=== PATIENT | male | born 1940 | race Caucasian/White ===

== ENCOUNTER 2017-05-24 11:33 | Inpatient (IN) | payer MEDICARE, OTHER ==
[~2017-05-24] VITALS: Ht 180.3 cm; Wt 88.1 kg
--- NOTE | ~2017-05-24 | IDS ---
Interim Discharge Summary [facility] [address] [place]. [address] NAME: ROSE DOSS JR : 42 STATUS : ADM IN [facility]#: [id number] AGE: 76 ADM/REG DATE : 05/26/17 MR#: [id number] REPORT SERV DATE: 05/30/17 DICTATED BY: PROSPER CORTEZ DATE: 05/30/17 REPORT STATUS : Draft TRANSCRIBED BY: MODL DATE: 05/30/17 ADMISSION DATE: 05/26/2017 DISCHARGE DATE: CONSULTING PHYSICIANS: Dr. Loza for Cardiology; Dr. Stapleotn for surgery; Dr. Sherman for GI. INTERIM DIAGNOSES: 1. Colon cancer, status post partial colectomy. 2. Status post rapid atrial flutter, atrial fibrillation. 3. Chronic kidney disease, stage 3. 4. History of mild asthma. 5. Benign prostatic hyperplasia. DIAGNOSTIC EXAMS: CAT scan of the abdomen and pelvis showing 6 cm long segment of circumferentially thickened appearing distal transverse colon, decompressed bladder, small fat-containing umbilical hernia, a 2.8 cm cyst lower pole, left kidney. HOSPITAL COURSE: Please refer to the H and P done by Dr. Cooper dated on 05/24/2017. Briefly, this is a 76-year-old male who comes in for rapid atrial fibrillation. The patient has been diagnosed with atrial fibrillation in July 2016 and was placed on Xarelto, Multaq, and Cardizem. Later on, the patient was taken off Multaq and then he started having some black stools. The patient was found to have an iron deficiency anemia. Xarelto was held. Hemoccult was positive. The patient was supposed to get an outpatient EGD and colonoscopy with Dr. Sherman; however, he was found to be in rapid atrial fibrillation and was directly admitted by Dr. Cooper. The patient was started on metoprolol together with his outpatient diltiazem and we were able to control this. Dr. Sherman was then consulted. He did an EGD, which shows grade 1 esophagitis, gastritis, duodenal erosions without bleeding. The patient then had a colonoscopy, which showed nonbleeding internal hemorrhoids. 6 mm polyp in the rectum and a midtransverse colon malignant tumor. Biopsy was done and it turned out to be cancer. Surgery was consulted and the patient underwent a partial colectomy. Pathology of the surgery is still pending. Meanwhile, the patient went into rapid atrial fibrillation flutter and was placed on a Cardizem drip. He converted back to a controlled atrial fibrillation. Cardiology was consulted and they agreed with the present management and restarted Xarelto when the surgeon said it was okay. The patient has been passing flatus. He wants to increase his diet as he said he has not been eating anything since he got admitted. We will wait for Dr. Stapleton to increase his diet. We will follow up the pathology. A partner [facility] will be following up the patient starting Wednesday. BERNABE/YAHIR Prosper Cortez M.D. / [id number] Interim Discharge Summary [address] [address] NAME: ROSE DOSS : 42 STATUS : ADM IN PAT#: [id number] AGE: 76 ADM/REG DATE : 05/26/17 MR#: [id number] REPORT SERV DATE: 05/30/17 DICTATED BY: PROSPER CORTEZ. DATE: 05/30/17 REPORT STATUS : Draft TRANSCRIBED BY: YAHIR DATE: 05/30/17 CC: Brittany Dial M.D.
--- NOTE | ~2017-05-24 | HP ---
History And Physical [place] [address] [facility]. [address] NAME: ROSE DOSS JR : 42 STATUS : ADM Zakia PAT#: [id number] AGE: 76 ADM/REG DATE : 05/24/17 MR#: [id number] REPORT SERV DATE: 05/24/17 DICTATED BY: PROSPER COOPER DATE: 05/24/17 REPORT STATUS : Draft TRANSCRIBED BY: MODL DATE: 05/24/17 DATE OF ADMISSION: 05/24/2017 IDENTIFYING DATA: The patient is a 76-year-old white male whose PCP is Dr. Miguel Fontanez; GI, Rafi Sherman; cardiology, Dr. Melendez in [place]; Nephrology, Dr. Gonzales in [place]. CHIEF COMPLAINT: Atrial fibrillation with rapid ventricular response and black stools. HISTORY OF PRESENT ILLNESS: This history of present illness is obtained by talking with the patient and talking with Dr. Sherman, and looking at the [employer] and [employer]. The patient states he was diagnosed with atrial fibrillation in July 2016 on a yearly physical exam. He was asymptomatic. His PCP started him on Xarelto at that time, and referred him to Dr. Melendez in [place]. He was placed on Multaq and Cardizem and the Cardizem dose was later titrated up because his heart rate was still fast. The patient describes a nuclear stress test and echocardiogram done at [facility] which he states was normal other than some cysts being found on his kidney. He states later his insurance company complained about the cost of the Multaq and his tube filler just stopped it. The patient states he has had episodes where he was lightheaded and faint, he will get dyspnea on exertion, and states that with that he was told he had low iron and "mild anemia." He did stool hemoccults and 4 out of the 5 that he checked were positive. He has been referred for EGD and colonoscopy, and today went for that but had rapid ventricular response so anesthesia delayed it, and asked us to get him under better control. REVIEW OF SYSTEMS: On review of systems, he states that he gets pain in his upper trapezius muscles when his iron level is low and he walks. He also gets dyspnea on exertion at that time. He denies fever, sore throat, cough, nasal congestion, chest pain, shortness of breath, abdominal pain, nausea, vomiting, diarrhea, or rectal bleeding. He did have black stools when he was on iron and Xarelto, the iron is [id number]-kiyitck. He states they were not as black when he stopped the Xarelto 2 weeks ago. ALLERGIES: NO KNOWN DRUG ALLERGIES. PAST MEDICAL HISTORY: He denies any history of diabetes, hypertension, myocardial infarction, stroke, seizure, peptic ulcer, biliary tract disease, liver disease, thyroid disease, cancer. He states he was tested for sleep apnea with a "home kit" and was normal. He has a history of colon polyps in the distant past. He has a history of mild intermittent asthma. He has cervical spine degenerative disk disease. He has stage 3 chronic kidney disease. He has iron deficiency anemia. He has had iron infusions for a couple times at [facility] and has been on some xead-vkd-czsmpdx iron. He has benign prostatic hypertrophy. HOME MEDICATIONS: Diltiazem extended release 240 mg daily, iron sulfate 325 mg daily, Proscar 5 mg every evening, multivitamin once a day, Zantac 150 mg b.i.d., Xarelto 20 mg History And Physical [address] [address] NAME: ROSE DOSS JR : 42 STATUS : ADM Zakia PAT#: [id number] AGE: 76 ADM/REG DATE : 05/24/17 MR#: [id number] REPORT SERV DATE: 05/24/17 DICTATED BY: PROSPER COOPER DATE: 05/24/17 REPORT STATUS : Draft TRANSCRIBED BY: YAHIR DATE: 05/24/17 daily but he stopped 2 weeks ago, mbsk-qsi-fmomcgm prostate supplement. He also uses some type of an albuterol inhaler p.r.n. PAST SURGICAL HISTORY: He had a biopsy of a skin lesion in the last week or two and a tonsillectomy. SOCIAL HISTORY: He quit smoking in 1984. He only smoked about three cigarettes per day. SOCIAL HISTORY: He states he drank moderately, but when I asked for details that was one glass of wine per month. 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 He walks without any assistive device. FAMILY HISTORY: Mother at age 73 with esophageal cancer, she had previously had breast cancer. Dad with alcoholic cirrhosis. Siblings unremarkable. DIAGNOSTIC DATA: There is none available that is up to date any sooner than August 2015 at this time, but it has been ordered at this time. PHYSICAL EXAMINATION: VITAL SIGNS: Temp is 98, pulse 88, respirations 18, blood pressure 130/70, O2 saturation is 100% on room air. BMI is 28.1. GENERAL: Well-developed male, who appears in no acute distress. HEENT: Head is atraumatic. Pupils are equal, round, and reactive to light. Extraocular motions are intact. No scleral icterus noted. Ear canals and TMs unremarkable. No inflammatory changes noted externally. Nose, noninflamed externally. Septum midline. Nares patent. Mouth, moist. Good gag. No redness of the throat, gums, or lips. NECK: Supple. No lymph node or thyroid enlargement. The carotids have good pulses. No bruits. LUNGS: Clear. Good air flow. No wheezes, no rhonchi. Normal respiratory effort. HEART: Irregularly irregular without murmur, gallop, click, or rub. ABDOMEN: Bowel sounds positive. Soft, flat, nondistended, nontender. No masses. No organomegaly. No bruits noted. EXTREMITIES: Warm, good pulses. No clubbing, no cyanosis, no edema. No actively inflamed skin or joints. NEUROLOGIC: He is alert, oriented, and cooperative with grossly normal mentation and speech as well as motor and cranial nerves II through XII. No Babinski. No clonus noted. ASSESSMENT: 1. Chronic atrial fibrillation with currently rapid ventricular response despite having taken his Cardizem CD. He reportedly had an unremarkable echo and unremarkable stress test, but we do not have the actual report. 2. Report of melena while on Xarelto and report of iron deficiency anemia. 3. Stage 3 chronic kidney disease. 4. Mild intermittent asthma. 5. Cervical spine degenerative disk disease. 6. History of benign prostatic hypertrophy. History And Physical [address] [address] NAME: ROSE DOSS : 42 STATUS : ADM Zakia PAT#: [id number] AGE: 76 ADM/REG DATE : 05/24/17 MR#: [id number] REPORT SERV DATE: 05/24/17 DICTATED BY: PROSPER COOPER DATE: 05/24/17 REPORT STATUS : Draft TRANSCRIBED BY: YAHIR DATE: 05/24/17 PLAN: 1. Observation status. 2. We are going to check iron, TIBC, ferritin, percent iron saturation, B12, magnesium, and TSH. We will put him on telemetry. We are going to add metoprolol low dose to his Cardizem CD. We are going to get the request sent now to [facility] for the results of his echocardiogram and his myocardial perfusion imaging. Called medical record, hopefully they will respond and send it back quickly. 3. If his rate is controlled, then probably tomorrow he can proceed with EGD and colonoscopy. RSJonna/YAHIR Prosper Cooper M.D. / [id number] CC: Brittany Medina M.D. Alan Shikoh, M.D.
--- NOTE | ~2017-05-24 | CN ---
Consultation Report [facility] [address] [place]. [address] NAME: ROSE DOSS JR : 42 STATUS : ADM Zakia PAT#: [id number] AGE: 76 ADM/REG DATE : 05/24/17 MR#: [id number] REPORT SERV DATE: 05/25/17 DICTATED BY: RAFI SHERMAN DATE: 05/24/17 REPORT STATUS : Draft TRANSCRIBED BY: MODL DATE: 05/24/17 CONSULT NOTE DATE OF CONSULTATION: 05/24/2017 REASON FOR CONSULTATION: Iron-deficiency anemia and heme-positive stool. HISTORY OF PRESENT ILLNESS: This is a 76-year-old man who I am seeing for iron-deficiency anemia with occult blood in the stool and even some melenic stool. This gentleman had been seen as an outpatient in our office, 04/14/2017. He has been struggling with atrial fibrillation. He sees his primary care physician, Dr. Fontanez, and also Dr. Nick Melendez, who has been managing atrial fibrillation. He has been on oral diltiazem and is even on Multaq in addition to Xarelto. The Multaq was held when he developed melena. Now, he is on Cardizem and Xarelto. The stools have been heme-positive, and he is iron deficient and anemic with the hemoglobin down to 10.7. We plan to perform an upper and lower endoscopy today, but he came in with atrial fibrillation with poor rate control with his heart rate up in the 140s. The case was canceled by the anesthesiologist. PAST MEDICAL HISTORY: 1. GERD. 2. Adenomatous colon polyps. 3. Atrial fibrillation since 07/2016. 4. Stage 3 chronic kidney disease. 5. BPH. 6. Hyperkalemia. 7. Mild mitral and tricuspid regurgitation. 8. Asthma. 9. Complex left kidney cyst. PAST SURGICAL HISTORY: No abdominal surgeries. MEDICATIONS: Xarelto, Cartia XT, ranitidine 150 mg twice daily, finasteride, Prostate SR, iron, multivitamin, MiraLAX, Breo inhaler, and ProAir inhaler. ALLERGIES: NO KNOWN DRUG ALLERGIES. FAMILY HISTORY: His mother had breast cancer in her 50s and esophageal cancer in her 60s but in her 70s. His father in his 60s of cirrhosis. SOCIAL HISTORY: He is . He quit smoking in the 70s. He is retired. Drinks alcohol socially. He lives in [place], [place]. REVIEW OF SYSTEMS: Otherwise unremarkable for constitutional, endocrine, neurologic, psychiatric, ocular, ENT, Consultation Report [place] [address] [place]. [address] NAME: ROSE DOSS JR : 42 STATUS : ADM Zakia PAT#: [id number] AGE: 76 ADM/REG DATE : 05/24/17 MR#: [id number] REPORT SERV DATE: 05/25/17 DICTATED BY: RAFI SHERMAN DATE: 05/24/17 REPORT STATUS : Draft TRANSCRIBED BY: MODL DATE: 05/24/17 pulmonary, GI, , or rheumatologic symptoms except for as noted above. PHYSICAL EXAMINATION: GENERAL: He is well nourished and in no acute distress. VITAL SIGNS: Afebrile but with a heart rate in the 140s which is irregularly irregular. SKIN: Warm and dry. LUNGS: Clear. CARDIOVASCULAR: Irregularly irregular rhythm with soft systolic murmur. ABDOMEN: Soft and nontender. EXTREMITIES: No edema. IMPRESSION: 1. Iron-deficiency anemia with occult blood in the stool and even melena a week or two ago. 2. History of adenomatous colon polyps. 3. Chronic constipation. 4. Family history of esophageal cancer in his mother. 5. Poorly controlled atrial fibrillation. PLAN: 1. We will arrange admission to the Hospitalist Service in consultation with Cardiology for rate control and IV diltiazem. 2. Clear liquids today. 3. NPO after midnight with plans to go ahead and try to perform the endoscopies tomorrow afternoon as he has had a bowel prep and is off the Xarelto. /MODL Rafi Sherman M.D. / [id number] CC: Brittany Medina M.D. DR. SYED AGHA
--- NOTE | ~2017-05-24 | EGD ---
EGD REPORT [facility] [address] [place] [address] NAME: ERIC DOSS JR : 42 STATUS : ADM Zakia PAT#: [id number] AGE: 76 ADM/REG DATE : 05/24/17 MR#: [id number] REPORT SERV DATE: 05/25/17 DICTATED BY: KAPIL MULLER DATE: 05/25/17 REPORT STATUS : Draft TRANSCRIBED BY: [facility] DATE: 05/25/17 Endoscopy Center Patient Name: Eric Doss Date of : 1940 Attending MD: KAPIL MULLER MD Procedure Date No Time: 05/25/2017 Procedure: Colonoscopy Indications: Gastrointestinal occult blood loss, Iron deficiency anemia secondary to chronic blood loss, Follow-up for history of adenomatous polyps in the colon, Last colonoscopy: July 2012 Referring MD: CRISTIAN ZIMMER Medicines: Propofol per Anesthesia Complications: No immediate complications. Estimated blood loss: Minimal. Procedure: Pre-Anesthesia Assessment: - After reviewing the risks and benefits, the patient was deemed in satisfactory condition to undergo the procedure. - Prior to the procedure, a History and Physical was performed, and patient medications and allergies were reviewed. The patient's tolerance of previous anesthesia was also reviewed. The risks and benefits of the procedure and the sedation options and risks were discussed with the patient. All questions were answered, and informed consent was obtained. Prior Anticoagulants: The patient has taken Xarelto (rivaroxaban), last dose was 3 days prior to procedure. ASA Grade Assessment: III - A patient with severe systemic disease. After reviewing the risks and benefits, the patient was deemed in satisfactory condition to undergo the procedure. After the scope was passed under direct vision. Throughout the procedure, the patient's blood pressure, pulse, and oxygen saturations were monitored continuously. The CF [id number] was introduced through the anus and advanced to the cecum, identified by appendiceal orifice and ileocecal valve. The colonoscopy was performed without difficulty. The ileocecal valve and appendiceal orifice were photographed. The patient tolerated the procedure well. The quality of the bowel preparation was only fair as the bowel prep was consumed 2 days before the procedure which had to be delayed for medical issues. The bowel preparation used was polyethylene glycol (PEG). Scope EGD REPORT [address] [address] NAME: ERIC DOSS JR : 42 STATUS : ADM Zakia PAT#: [id number] AGE: 76 ADM/REG DATE : 05/24/17 MR#: [id number] REPORT SERV DATE: 05/25/17 DICTATED BY: KAPIL MULLER DATE: 05/25/17 REPORT STATUS : Draft TRANSCRIBED BY: [employer] DATE: 05/25/17 withdrawal time was greater than 15 minutes. Findings: The perianal and digital rectal examinations were normal. Pertinent negatives include normal sphincter tone. Non-bleeding internal hemorrhoids were found during retroflexion and were medium-sized and Grade I (internal hemorrhoids that do not prolapse). A sessile polyp was found in the rectum. The polyp was 6 mm in size. The polyp was removed with a cold snare. Resection and retrieval were complete. Estimated blood loss: none. An infiltrative non-obstructing small mass was found in the mid transverse colon. The mass was partially circumferential (involving one-third of the lumen circumference). The mass measured two cm in length. No bleeding was present. Biopsies were taken with a cold forceps for histology. Estimated blood loss was minimal. Area was successfully injected with 5 mL Spot (carbon black) for tattooing. Estimated blood loss: none. The exam was otherwise without abnormality. Impression: - Non-bleeding internal hemorrhoids. - One 6 mm polyp in the rectum. Resected and retrieved. - Malignant tumor in the mid transverse colon. Biopsied. Biopsied. Injected. - The examination was otherwise normal. Recommendation: - [facility]. - Clear liquid diet. - Continue present medications. - Await pathology results. - Check liver enzymes (AST, ALT, alkaline phosphatase, bilirubin) and CEA today. - Perform a CT scan (computed tomography) of abdomen with contrast and pelvis with contrast today. - Refer to a surgeon today. - Repeat colonoscopy in 1 year for surveillance. Procedure Code(s): --- Professional --- 94586, Colonoscopy, flexible, proximal to splenic flexure; with removal of tumor(s), polyp(s), or other lesion(s) by snare technique 14470, 59, Colonoscopy, flexible, proximal to splenic flexure; with biopsy, single or multiple 14681, Colonoscopy, flexible, proximal to splenic flexure; with directed submucosal injection(s), any substance Diagnosis Code(s): --- Professional --- EGD REPORT [address] [address] NAME: ERIC DOSS JR : 42 STATUS : ADM Zakia PAT#: [id number] AGE: 76 ADM/REG DATE : 05/24/17 MR#: [id number] REPORT SERV DATE: 05/25/17 DICTATED BY: KAPIL MULLER DATE: 05/25/17 REPORT STATUS : Draft TRANSCRIBED BY: [employer] DATE: 05/25/17 K64.0, First degree hemorrhoids K62.1, Rectal polyp C18.4, Malignant neoplasm of transverse colon R19.5, Other fecal abnormalities D50.0, Iron deficiency anemia secondary to blood loss (chronic) Z86.010, Personal history of colonic polyps CPT copyright 2013 [employer]. All rights reserved. The codes documented in this report are preliminary and upon electron tube assembler review may be revised to meet current compliance requirements. Attending Participation: I personally performed the entire procedure. KAPIL MULLER MD 05/25/2017 3:25 PM This report has been signed electronically. Number of Addenda: 0 Note Initiated On: 05/25/2017 2:31 PM Scope Withdrawal Time 0 hours 15 minutes 33 seconds [id number] [id number]
--- NOTE | ~2017-05-24 | DS ---
Discharge Summary [place] [id number] [facility] [place]. [address] NAME: ROSE DOSS JR : 42 STATUS : DIS IN PAT#: [id number] AGE: 76 ADM/REG DATE : 05/26/17 MR#: [id number] REPORT SERV DATE: 06/02/17 DICTATED BY: NEERAJ GLASER DATE: 06/01/17 REPORT STATUS : Draft TRANSCRIBED BY: MODL DATE: 06/01/17 ADMISSION DATE: 05/26/2017 DISCHARGE DATE: 06/01/2017 DISCHARGE TRANSFER Please see full details from interim discharge summary done just [address] Celestin. 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 The patient came in, 76-year-old, with rapid AFib; was previously on Xarelto, Multaq, and Cardizem. Taken off Multaq. Thereafter, developed melena, iron deficiency. Xarelto was held. Hemoccult was positive. Was to have outpatient endoscopy and colonoscopy; however, given RVR, was directly admitted to the hospital. Dr. Sherman did an endoscopy here, grade 1 esophagitis, gastritis, duodenal erosions without bleeding. The patient then had a colonoscopy, nonbleeding internal hemorrhoids; however, found a 6 mm polyp in the rectum and midtransverse colon with malignant tumor, biopsy was done, mucinous adenocarcinoma. Surgery was consulted. Partial colectomy was performed. The patient thereafter went back into RVR, converted. With Cardiology consultation, they had restarted the Xarelto. Currently, still on mechanical soft diet. We will try to induce a bowel movement. The partial colectomy, transverse, was on 05/27/2017. Appeared to have a full-thickness with final staging, deferred to permanent section. As a result, we will have the patient follow up [facility]INT[facility] with [facility] for possible adjuvant chemo. Do not see any adjacent lymphadenopathy on the CT with IV contrast. Has resolved duodenal erosion, PPI b.i.d. for likely [address] Sherman. FOLLOWUP: Follow up with Dr. Sherman in four to six weeks. Follow up with PCP in two weeks. Follow up with [facility] in two weeks. DISCHARGE MEDICATIONS: Diltiazem CD 240 p.o. daily, metoprolol tartrate 25 p.o. b.i.d., Proscar 5 p.o. daily, Protonix 40 p.o. b.i.d., iron sulfate 325 p.o. daily, multivitamin one tablet p.o. daily, Xarelto 20 p.o. at bedtime, Colace 100 p.o. b.i.d. CONSULTS: Surgery, Cardiology, EP. [id number] score of 2 for age, unknown history of high blood pressure, oral anticoagulation was indicated. All questions were answered. It took well over 30 minutes to do. Discharge Summary [address] [place]. [address] NAME: ROSE DOSS JR : 42 STATUS : DIS IN PAT#: [id number] AGE: 76 ADM/REG DATE : 05/26/17 MR#: [id number] REPORT SERV DATE: 06/02/17 DICTATED BY: NEERAJ GLASER DATE: 06/01/17 REPORT STATUS : Draft TRANSCRIBED BY: [employer] DATE: 06/01/17 VICTORIANO/YAHIR Neeraj Glaser DO / [id number] CC: Brittany Dial M.D.
--- NOTE | ~2017-05-24 | OP ---
Record Of Operation [facility] [address] [place]. [address] NAME: ROSE DOSS JR : 42 STATUS : ADM IN PAT#: [id number] AGE: 76 ADM/REG DATE : 05/26/17 MR#: [id number] REPORT SERV DATE: 05/27/17 DICTATED BY: SERAFIN ADHIKARI JR. DATE: 05/27/17 REPORT STATUS : Draft TRANSCRIBED BY: YAHIR DATE: 05/27/17 DATE OF PROCEDURE: 05/27/2017 ASSISTANT IMPORT MANAGER: Shara Devine. PROCEDURE: Partial colectomy (transverse). PREOPERATIVE DIAGNOSIS: Carcinoma of the colon. POSTOPERATIVE DIAGNOSIS: Carcinoma of the colon. ANESTHESIA: General. INDICATIONS: The patient has been found to have a malignant-appearing mass in the transverse colon. Biopsy shows at least intramucosal carcinoma. There was no evidence of any metastatic disease on imaging and then exploration for appropriate resection is indicated. FINDINGS: On exploration of the abdomen, there is no evidence of any ascites. No metastasis. There is visible tattooing of the site of the tumor, which is palpable in the transverse colon just distal to the midline. This was resected with a partial colectomy. There was also noted to be hepatic metastasis by inspection or palpation. The resection was undertaken. Examination by pathology demonstrated a malignant-appearing tumor that did appear to be full thickness with final staging deferred to permanent section. All gross tumor was removed. DESCRIPTION OF PROCEDURE: With adequate general anesthesia, the patient was placed in the supine position. The abdomen was prepped and draped sterilely. An upper midline incision was made. The dissection was carried down sharply through the subcutaneous tissues. The fascia and peritoneum were opened. The peritoneal cavity was entered and the above-noted findings were encountered. The colon was mobilized by dividing the gastrocolic omentum utilizing the EnSeal device and also with mobilization of the splenic flexure. Sites were selected for revision of the colon proximal and distal to the mass and this was accomplished with a DAMASO 75. Then, the mesentery was taken down to and clamping the middle colic at its base and small bleeders were controlled with the EnSeal and the dominant artery was clamped and divided. Once this was done, the specimen was removed consisting of the colon attached mesentery and this was submitted to Pathology with no results. Then, end-to-end colocolostomy was created with the interrupted sutures of 3-0 silk placed in two layers. This produced satisfactory anastomosis. Omentum was placed over the anastomosis. The mesenteric defect was also closed. Then, the abdomen was irrigated with saline. Hemostasis was assured. The wound was closed by approximating the fascia with a running 0 PDS suture and subcutaneous Vicryl and dermal Monocryl. Sterile dressings were applied. The patient tolerated the procedure well and left the operating room in satisfactory condition. ESTIMATED BLOOD LOSS: For the procedure was 30 mL. Record Of Operation [address] [address] NAME: ROSE DOSS : 42 STATUS : ADM IN [facility]#: [id number] AGE: 76 ADM/REG DATE : 05/26/17 MR#: [id number] REPORT SERV DATE: 05/27/17 DICTATED BY: SERAFIN ADHIKARI JR. DATE: 05/27/17 REPORT STATUS : Draft TRANSCRIBED BY: YAHIR DATE: 05/27/17 IRMA/YAHIR Serafin Adhikari Jr., M.D. / [id number] CC: Brittany Dial M.D.
--- NOTE | ~2017-05-24 | EGD ---
EGD REPORT [facility] [address] [place] [address] NAME: ERIC DOSS JR : 42 STATUS : ADM Zakia PAT#: [id number] AGE: 76 ADM/REG DATE : 05/24/17 MR#: [id number] REPORT SERV DATE: 05/25/17 DICTATED BY: KAPIL MULLER DATE: 05/25/17 REPORT STATUS : Draft TRANSCRIBED BY: [facility] DATE: 05/25/17 Endoscopy Center Patient Name: Eric Doss Date of : 1940 Attending MD: KAPIL MULLER MD Procedure Date No Time: 05/25/2017 Procedure: Upper GI endoscopy Indications: Iron deficiency anemia secondary to chronic blood loss, Gastro-esophageal reflux disease, Heme positive stool, Family history of esophageal cancer in mother Referring MD: CRISTIAN ZIMMER Medicines: Propofol per Anesthesia Complications: No immediate complications. Estimated blood loss: None. Procedure: Pre-Anesthesia Assessment: - After reviewing the risks and benefits, the patient was deemed in satisfactory condition to undergo the procedure. - Prior to the procedure, a History and Physical was performed, and patient medications and allergies were reviewed. The patient's tolerance of previous anesthesia was also reviewed. The risks and benefits of the procedure and the sedation options and risks were discussed with the patient. All questions were answered, and informed consent was obtained. Prior Anticoagulants: The patient has taken Xarelto (rivaroxaban), last dose was 3 days prior to procedure. ASA Grade Assessment: III - A patient with severe systemic disease. After reviewing the risks and benefits, the patient was deemed in satisfactory condition to undergo the procedure. After obtaining informed consent, the endoscope was passed under direct vision. Throughout the procedure, the patient's blood pressure, pulse, and oxygen saturations were monitored continuously. The GIF [id number] was introduced through the mouth, and advanced to the jejunum. The upper GI endoscopy was accomplished without difficulty. The patient tolerated the procedure well. Findings: Yamileth-Mueller Grade I (single erosion or exudate, oval or linear, single fold) esophagitis with no bleeding was found. The Z-line was irregular. Biopsies were taken with a cold forceps for histology. Estimated blood loss: none. Diffuse mild inflammation characterized by congestion (edema) and granularity was found in the gastric antrum. Biopsies were taken with a EGD REPORT [address] [address] NAME: ERIC DOSS JR : 42 STATUS : ADM Zakia PAT#: [id number] AGE: 76 ADM/REG DATE : 05/24/17 MR#: [id number] REPORT SERV DATE: 05/25/17 DICTATED BY: KAPIL MULLER DATE: 05/25/17 REPORT STATUS : Draft TRANSCRIBED BY: [facility] DATE: 05/25/17 cold forceps for histology. Estimated blood loss: none. The gastroesophageal junction (on retroflexion) was normal. Multiple erosions without bleeding were found in the duodenal bulb. The 2nd part of the duodenum and 3rd part of the duodenum were normal. Biopsies were taken with a cold forceps for histology. Estimated blood loss: none. Impression: - Lidia Grade I reflux esophagitis. - Z-line irregular,. Biopsied. - Gastritis. Biopsied. - Normal gastroesophageal junction. - Duodenal erosions without bleeding. - Normal 2nd part of the duodenum and 3rd part of the duodenum. Biopsied. Recommendation: - [facility] patient to [facility] care. - Return to previous diet. - Continue present medications. - Begin Protonix (pantoprazole) 40 mg each morning. - Change Zantac (ranitidine) to 150 mg at bedtime until completed. - Await pathology results. - Perform a colonoscopy today. Procedure Code(s): --- Professional --- 79596, Esophagogastroduodenoscopy, flexible, transoral; with biopsy, single or multiple Diagnosis Code(s): --- Professional --- K21.0, Gastro-esophageal reflux disease with esophagitis K22.8, Other specified diseases of esophagus K29.70, Gastritis, unspecified, without bleeding K26.9, Duodenal ulcer, unspecified as acute or chronic, without hemorrhage or perforation D50.0, Iron deficiency anemia secondary to blood loss (chronic) R19.5, Other fecal abnormalities CPT copyright 2013 [employer] [employer]. All rights reserved. The codes documented in this report are preliminary and upon manager program review may be revised to meet current compliance requirements. KAPIL MULLER MD 05/25/2017 2:50 PM EGD REPORT [facility] [address] [address] NAME: ERIC DOSS JR : 42 STATUS : ADM Zakia PAT#: [id number] AGE: 76 ADM/REG DATE : 05/24/17 MR#: [id number] REPORT SERV DATE: 05/25/17 DICTATED BY: KAPIL MULLER DATE: 05/25/17 REPORT STATUS : Draft TRANSCRIBED BY: [employer] DATE: 05/25/17 This report has been signed electronically. Number of Addenda: 0 Note Initiated On: 05/25/2017 2:32 PM Scope Withdrawal Time 0 hours 0 minutes 0 seconds [id number] [id number]
--- NOTE | ~2017-05-24 | CN ---
Consultation Report [facility] [address] [place]. [address] NAME: ROSE DOSS JR : 42 STATUS : ADM IN PAT#: [id number] AGE: 76 ADM/REG DATE : 05/26/17 MR#: [id number] REPORT SERV DATE: 05/28/17 DICTATED BY: OWEN GUIDRY SAMUEL O. DATE: 05/28/17 REPORT STATUS : Draft TRANSCRIBED BY: MODL DATE: 05/28/17 ELECTROPHYSIOLOGY CONSULTATION DATE OF CONSULTATION: I was asked to see the patient by Dr. Celestin. HISTORY: This is a 76-year-old male with a history of no known coronary artery disease, but history of atrial fibrillation and atrial flutter, who presented to the hospital with melena. He was ultimately diagnosed with colon cancer and underwent a colectomy with reanastomosis in this hospitalization. While on telemetry, he has been noted to be in atrial fibrillation with overall controlled rates. However last night, he had atrial flutter with rates to 150. This lasted approximately 8 hours. He was placed on diltiazem drip. He converted back to atrial fibrillation with controlled rates. The patient states that he has had a diagnosis of atrial fibrillation and atrial flutter starting back in July 2016. Overall, he was asymptomatic at that time. His primary care doctor started him on Xarelto, and he was referred to Dr. Melendez in [place]. He has been placed on Multaq and Cardizem. He underwent a nuclear stress test which revealed no ischemia, and echocardiogram which revealed diastolic dysfunction, normal ejection fraction, and left atrial enlargement. He continued in atrial fibrillation predominantly, and ultimately was taken off the Multaq, and continued on Cardizem. During this time, he has remained very active and would go on a treadmill or elliptical for up to an hour at a time. He states he could run for 4 miles. He did have some fatigue, but this is related to iron deficiency anemia. He was placed on iron which improved his symptoms. Ultimately, his anemia was found to be related to the colon cancer as noted above. The patient denies any chest pain. He has had some dyspnea on exertion, but this improved with iron treatments. He denies any palpitations or syncope. He denies fever, sore throat, cough, nasal congestion, abdominal pain, nausea, vomiting, diarrhea, and rectal bleeding. The patient has been off the Xarelto for the last two weeks. ALLERGIES: NO KNOWN DRUG ALLERGIES. PAST MEDICAL HISTORY: Includes atrial fibrillation, atrial flutter, history of colon polyps, history of cervical spine degenerative disk disease, stage III chronic kidney disease, iron deficiency anemia for which he had iron infusions, and benign prostatic hypertrophy. PAST SURGICAL HISTORY: Biopsy of the skin lesion. He has had a tonsillectomy. SOCIAL HISTORY: No current tobacco use. Remote tobacco history. He uses alcohol socially. 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 FAMILY HISTORY: There is no family history of sudden cardiac . Consultation Report [place] [place] [id number] [facility] [place]. [address] NAME: ROSE DOSS JR : 42 STATUS : ADM IN [facility]#: [id number] AGE: 76 ADM/REG DATE : 05/26/17 MR#: [id number] REPORT SERV DATE: 05/28/17 DICTATED BY: OWEN GUIDRY SAMUEL O. DATE: 05/28/17 REPORT STATUS : Draft TRANSCRIBED BY: YAHIR DATE: 05/28/17 REVIEW OF SYSTEMS: Negative other than mentioned in the history. MEDICATIONS: Please refer to the MAR, but of note, for inpatient, he is currently on a diltiazem drip. Diltiazem 240 a day, metoprolol 25 b.i.d., pantoprazole 40, heparin subcu q.8, Pepcid, and finasteride. PHYSICAL EXAMINATION: GENERAL: A very pleasant male, lying in bed, in no acute distress. VITAL SIGNS: Temperature 98.1, pulse of 86, blood pressure 114/66, respirations of 16, and saturating 99% on room air. GENERAL: He is alert, oriented, and in no acute distress. HEENT: Moist mucous membranes. Eyes are anicteric. CARDIOVASCULAR: Irregularly irregular. No murmurs, rubs, or gallops. LUNGS: Clear to auscultation bilaterally. ABDOMEN: Distended. Faint bowel sounds. Tender to touch diffusely. EXTREMITIES: There is no clubbing and warm to touch distally. NEUROLOGIC: He is alert and oriented fully. He is grossly normal. SKIN: There are no lesions, no rashes. PSYCHIATRIC: Normal mood and affect. LABORATORY: Sodium of 137; potassium of 5.0; chloride of 102; BUN of 29; and creatinine of 2.0, noted 1.47 yesterday. GFR is 36. His white blood cell count of 24, hemoglobin of 19, hematocrit of 45, and platelets of 628. INR of 1.1. Cardiac biomarkers are negative. TSH of 1.6. Cardiac data: An echocardiogram from [facility] reveals an ejection fraction of 65%. Mild left ventricular hypertrophy. Mild diastolic dysfunction. Mild dilated left atrium. Mild mitral regurgitation. [id number] tricuspid regurgitation. Moderately elevated pulmonary artery systolic pressure, estimated 50. He had a nuclear medicine test which revealed no evidence of ischemia, though these were in August 2016. Telemetry; he is in an atrial fibrillation with controlled rates in 90s. Last night he had atrial flutter with rates to 150, discovered atrial fibrillation. Approximately at 1230 hours. Electrocardiogram on 05/27/2017 at 2200 hours reveals atrial flutter with a rate of 153, two to-one conduction. The flutter waves are positive in the inferior leads and negative in V1 consistent with a cavotricuspid isthmus-dependent flutter in a clockwise rotation. IMPRESSION: 1. Atrial tachyarrhythmias to include persistent atrial fibrillation and atrial flutter. He has rate controlled atrial fibrillation, but at times appears to have atrial flutter with rapid ventricular response. His [id number] score is 2 for his age with an unknown history of high blood pressure, and therefore oral anticoagulation is indicated. He is unable to take anticoagulation at this time due to his GI bleeding. Therefore ongoing attempts at rate control are his best option at the current time. The atrial flutter with rapid ventricular response may be difficult to rate control, and ultimately, I Consultation Report [address] [place]. [address] NAME: ROSE DOSS : 42 STATUS : ADM IN PAT#: [id number] AGE: 76 ADM/REG DATE : 05/26/17 MR#: [id number] REPORT SERV DATE: 05/28/17 DICTATED BY: OWEN GUIDRY SAMUEL O. DATE: 05/28/17 REPORT STATUS : Draft TRANSCRIBED BY: MODL DATE: 05/28/17 think that an atrial flutter ablation will be his best option. This appears to be cavotricuspid isthmus-dependent in a clockwise rotation. As well, though he is unsure if he is symptomatic, I think that long-term performing a NEO and cardioversion when he is able to take anticoagulation would be reasonable followed by the CTI ablation. At that point, also consideration of antiarrhythmics to treat his atrial fibrillation or ultimately perhaps a pulmonary vein isolation for atrial fibrillation would be reasonable. Again, for now we will try rate control. His overall sickness is probably causing difficulties with rate control as well. He has a normal ejection fraction and no evidence of coronary artery disease. 2. Colon cancer status post colectomy. 3. Chronic kidney disease stage III. 4. Iron deficiency anemia. 5. History of benign prostatic hyperplasia. PLAN: 1. Rate control with beta-blockers, calcium channel blockers. We will attempt to stop the diltiazem drip and go with oral medications. 2. Decision from Surgery and Gastroenterology when he can take oral anticoagulation. 3. Ultimately, he may require atrial flutter ablation or antiarrhythmic therapies, but this is depended on anticoagulation status. 4. We will follow with you. Thank you very much for allowing us participate in the care of the patient. SOJ/MODL Margarito Guidry MD / [id number] CC: Brittany Dial M.D.
[~2017-05-24 11:33] MED LIST: CARTIA XT240 MG/24 PO; CENTRUM PO; FERROUS SULF325 M1 PO; PROSCAR5 PO; PROSTATE SR PO; XARELTO20 MG PO; ZANTAC150 MG PO
[2017-05-24 17:29] LABS: BASOPHILS 1.4 %; BASOPHILS ABSOLUTE 0.16 10/3/uL (0.0-0.16); EOSINOPHILS 0.8 %; EOSINOPHILS ABSOLUTE 0.09 10/3/uL (0.0-0.53); HEMATOCRIT 48.1 % (40.0-51.0); IMMATURE GRANULOCYTES 0.1 %; IMMATURE GRANULOCYTES ABSOLUTE 0.01 10/3/uL (0.0-0.11); LYMPHOCYTES 10.7 %; LYMPHOCYTES ABSOLUTE 1.19 10/3/uL (0.67-4.30); MEAN CORPUS HGB CONC 33.3 g/dL (32.0-36.0); MEAN CORPUSCULAR HEMOGLOB 29.2 pg (26.0-34.0); MEAN PLATELET VOLUME 9.9 fL (9.2-13.0); MONOCYTES 7.1 %; MONOCYTES ABSOLUTE 0.79 10/3/uL (0.21-1.20); NEUTROPHILS 79.9 %; NEUTROPHILS ABSOLUTE 8.91 10/3/uL (2.02-8.40); RED CELL COUNT 5.48 10/6/uL (4.7-6.1)
[2017-05-24 17:31] LABS: MANUAL DIFF NO %; MEAN CORPUSCULAR VOLUME 87.8 fL (80-100); PLATELET COUNT 660 10/3/uL (150-400); RBC DISTRIBUTION WIDTH 18.5 % (12.0-16.0); WHITE BLOOD CELLS 11.2 10/3/uL (4.5-10.5)
[2017-05-24 17:36] LABS: INTERNATIONAL NORMAL RATI 1.1 UNITS (-); PARTIAL THROMBO TIME 28.6 SEC (22.5-37.2); PROTIME (NOT ORD) 14.2 SEC (12.0-14.5)
[2017-05-24 18:11] LABS: A/G RATIO 0.9 (0.7-1.9); ALBUMIN 3.9 G/DL (3.5-5.0); ALKALINE PHOSPHATASE 86 U/L (45-117); BUN (BLOOD UREA NITROGEN) 16 MG/DL (6-23); CALCIUM, SERUM 9.1 MG/DL (8.5-10.4); CHLORIDE, SERUM 104 MMOL/L (96-112); CO2 (CARBON DIOXIDE) 26 MMOL/L (24-34); CREATININE 1.56 MG/DL (0.70-1.30); FERRITIN 29 NG/ML (26-388); GFR AFRICAN AMERICAN 50 ML/MIN (>=60); GFR NON AFRICAN AMERICAN 43 ML/MIN (>=60); GLOBULIN 4.2 G/DL (2.5-4.1); GLUCOSE, SERUM 74 MG/DL (60-99); IRON BINDING CAPACITY 429 MCG/DL (250-450); IRON, SERUM 42 MCG/DL (35-150); POTASSIUM, SERUM 4.1 MMOL/L (3.5-5.3); SGOT(AST) 20 U/L (5-40); SGPT(ALT) 21 U/L (5-65); SODIUM, SERUM 138 MMOL/L (135-148); TOTAL BILIRUBIN 0.7 MG/DL (0-1.2); TOTAL PROTEIN 8.1 G/DL (6.0-8.5)
[2017-05-25 05:58] LABS: BASOPHILS 1.9 %; BASOPHILS ABSOLUTE 0.16 10/3/uL (0.0-0.16); EOSINOPHILS 2.8 %; EOSINOPHILS ABSOLUTE 0.23 10/3/uL (0.0-0.53); HEMATOCRIT 46.8 % (40.0-51.0); HEMOGLOBIN 15.4 g/dL (13.6-17.8); IMMATURE GRANULOCYTES 0.2 %; IMMATURE GRANULOCYTES ABSOLUTE 0.02 10/3/uL (0.0-0.11); LYMPHOCYTES ABSOLUTE 1.08 10/3/uL (0.67-4.30); MEAN CORPUS HGB CONC 32.9 g/dL (32.0-36.0); MEAN CORPUSCULAR HEMOGLOB 29.1 pg (26.0-34.0); MEAN CORPUSCULAR VOLUME 88.3 fL (80-100); MEAN PLATELET VOLUME 10.3 fL (9.2-13.0); MONOCYTES 12.7 %; MONOCYTES ABSOLUTE 1.05 10/3/uL (0.21-1.20); NEUTROPHILS 69.4 %; NEUTROPHILS ABSOLUTE 5.76 10/3/uL (2.02-8.40); PLATELET COUNT 695 10/3/uL (150-400); RBC DISTRIBUTION WIDTH 18.1 % (12.0-16.0); WHITE BLOOD CELLS 8.3 10/3/uL (4.5-10.5)
[2017-05-25 05:59] LABS: MANUAL DIFF NO %
[2017-05-25 16:54] LABS: ALBUMIN 3.7 G/DL (3.5-5.0); DIRECT BILIRUBIN 0.2 MG/DL (0.0-0.4); INDIRECT BILIRUBIN(NOT ORDER) 0.6 MG/DL (0.1-0.9); TOTAL BILIRUBIN 0.8 MG/DL (0-1.2); TOTAL PROTEIN 7.8 G/DL (6.0-8.5)
[2017-05-25 17:11] LABS: CEA 4.6 NG/ML
[2017-05-25 18:30] LABS: CREATININE 1.58 MG/DL (0.70-1.30)
[2017-05-26 05:31] LABS: BASOPHILS 1.1 %; BASOPHILS ABSOLUTE 0.13 10/3/uL (0.0-0.16); EOSINOPHILS 0.4 %; EOSINOPHILS ABSOLUTE 0.05 10/3/uL (0.0-0.53); HEMATOCRIT 44.8 % (40.0-51.0); HEMOGLOBIN 14.9 g/dL (13.6-17.8); IMMATURE GRANULOCYTES 0.2 %; IMMATURE GRANULOCYTES ABSOLUTE 0.02 10/3/uL (0.0-0.11); LYMPHOCYTES 10.3 %; LYMPHOCYTES ABSOLUTE 1.23 10/3/uL (0.67-4.30); MEAN CORPUS HGB CONC 33.3 g/dL (32.0-36.0); MEAN CORPUSCULAR VOLUME 87.3 fL (80-100); MONOCYTES ABSOLUTE 1.08 10/3/uL (0.21-1.20); NEUTROPHILS ABSOLUTE 9.44 10/3/uL (2.02-8.40); PLATELET COUNT 625 10/3/uL (150-400); RBC DISTRIBUTION WIDTH 17.7 % (12.0-16.0); RED CELL COUNT 5.13 10/6/uL (4.7-6.1)
[2017-05-26 05:32] LABS: MANUAL DIFF NO %
[2017-05-26 05:37] LABS: BUN (BLOOD UREA NITROGEN) 15 MG/DL (6-23); CHLORIDE, SERUM 103 MMOL/L (96-112); CO2 (CARBON DIOXIDE) 28 MMOL/L (24-34); GFR AFRICAN AMERICAN 48 ML/MIN (>=60); GFR NON AFRICAN AMERICAN 42 ML/MIN (>=60); GLUCOSE, SERUM 106 MG/DL (60-99); POTASSIUM, SERUM 4.9 MMOL/L (3.5-5.3); SODIUM, SERUM 137 MMOL/L (135-148)
[2017-05-26 15:34] LABS: T PROTEIN (ELECT)(NOT OR 7.2 G/DL (6.0-8.5)
[2017-05-27 06:16] LABS: BASOPHILS 2.8 %; BASOPHILS ABSOLUTE 0.24 10/3/uL (0.0-0.16); EOSINOPHILS 5.1 %; EOSINOPHILS ABSOLUTE 0.43 10/3/uL (0.0-0.53); HEMATOCRIT 44.5 % (40.0-51.0); HEMOGLOBIN 14.4 g/dL (13.6-17.8); IMMATURE GRANULOCYTES 0.1 %; IMMATURE GRANULOCYTES ABSOLUTE 0.01 10/3/uL (0.0-0.11); LYMPHOCYTES 14.3 %; LYMPHOCYTES ABSOLUTE 1.21 10/3/uL (0.67-4.30); MEAN CORPUS HGB CONC 32.4 g/dL (32.0-36.0); MEAN CORPUSCULAR HEMOGLOB 28.6 pg (26.0-34.0); MEAN CORPUSCULAR VOLUME 88.3 fL (80-100); MEAN PLATELET VOLUME 10.2 fL (9.2-13.0); MONOCYTES 13.4 %; MONOCYTES ABSOLUTE 1.14 10/3/uL (0.21-1.20); NEUTROPHILS 64.3 %; NEUTROPHILS ABSOLUTE 5.46 10/3/uL (2.02-8.40); PLATELET COUNT 638 10/3/uL (150-400); RBC DISTRIBUTION WIDTH 17.5 % (12.0-16.0); RED CELL COUNT 5.04 10/6/uL (4.7-6.1); WHITE BLOOD CELLS 8.5 10/3/uL (4.5-10.5)
[2017-05-27 06:18] LABS: MANUAL DIFF NO %
[2017-05-27 06:25] LABS: A/G RATIO 0.8 (0.7-1.9); ALBUMIN 3.1 G/DL (3.5-5.0); ALKALINE PHOSPHATASE 65 U/L (45-117); BUN (BLOOD UREA NITROGEN) 16 MG/DL (6-23); CHLORIDE, SERUM 104 MMOL/L (96-112); CREATININE 1.47 MG/DL (0.70-1.30); GFR AFRICAN AMERICAN 53 ML/MIN (>=60); GFR NON AFRICAN AMERICAN 46 ML/MIN (>=60); GLOBULIN 3.7 G/DL (2.5-4.1); POTASSIUM, SERUM 4.1 MMOL/L (3.5-5.3); SGOT(AST) 23 U/L (5-40); SGPT(ALT) 20 U/L (5-65); SODIUM, SERUM 137 MMOL/L (135-148); TOTAL BILIRUBIN 0.8 MG/DL (0-1.2); TOTAL PROTEIN 6.8 G/DL (6.0-8.5)
[2017-05-27 06:26] LABS: CEA 3.5 NG/ML; CO2 (CARBON DIOXIDE) 23 MMOL/L (24-34); GLUCOSE, SERUM 78 MG/DL (60-99)
[2017-05-27 17:28] LABS: HEMATOCRIT 45.4 % (40.0-51.0); HEMOGLOBIN 14.9 g/dL (13.6-17.8); MANUAL DIFF YES %; MEAN CORPUS HGB CONC 32.8 g/dL (32.0-36.0); MEAN CORPUSCULAR HEMOGLOB 29.2 pg (26.0-34.0); MEAN PLATELET VOLUME 10.3 fL (9.2-13.0); NUCLEATED RED BLOOD CELLS 0.3 /100WBC (0-0); PLATELET COUNT 628 10/3/uL (150-400); RBC DISTRIBUTION WIDTH 17.1 % (12.0-16.0); WHITE BLOOD CELLS 24.6 10/3/uL (4.5-10.5)
[2017-05-27 17:42] LABS: BUN (BLOOD UREA NITROGEN) 21 MG/DL (6-23); CALCIUM, SERUM 8.9 MG/DL (8.5-10.4); CHLORIDE, SERUM 105 MMOL/L (96-112); CO2 (CARBON DIOXIDE) 20 MMOL/L (24-34); CREATININE 1.61 MG/DL (0.70-1.30); GFR AFRICAN AMERICAN 48 ML/MIN (>=60); GFR NON AFRICAN AMERICAN 41 ML/MIN (>=60); GLUCOSE, SERUM 91 MG/DL (60-99); POTASSIUM, SERUM 4.4 MMOL/L (3.5-5.3); SODIUM, SERUM 138 MMOL/L (135-148)
[2017-05-27 17:53] LABS: BAND NEUTROPHILS 5 %; LYMPHOCYTES 6 %; LYMPHOCYTES ABSOLUTE (CALC) 1.48 10/3/uL (0.67-4.30); MONOCYTES 2 %; MONOCYTES ABSOLUTE (CALC) 0.49 10/3/uL (0.21-1.20); NEUTROPHILS ABSOLUTE (CALC) 22.63 10/3/uL (2.02-8.40); PLATELET ESTIMATE INC (ADEQUATE); SEGMENTED NEUTROPHIL (0) 87 %; TOTAL NUCLEATED CELLS 100
[2017-05-27 17:54] LABS: ANISOCYTOSIS 1+ (5-10/OIF) (0-5/OIF)
[2017-05-27 17:56] LABS: MACROCYTES 1+ (5-10/OIF) (0-5/OIF); MICROCYTES 1+ (5-10/OIF) (0-5/OIF)
[2017-05-27 23:35] LABS: CK-MB 2.6 NG/ML; CPK 130 U/L (0-200); TROPONIN I <0.02 NG/ML (<0.05)
[2017-05-28 06:44] LABS: A/G RATIO 0.8 (0.7-1.9); ALBUMIN 3.3 G/DL (3.5-5.0); ALKALINE PHOSPHATASE 68 U/L (45-117); CALCIUM, SERUM 9.3 MG/DL (8.5-10.4); CHLORIDE, SERUM 102 MMOL/L (96-112); CO2 (CARBON DIOXIDE) 23 MMOL/L (24-34); CREATININE 2.02 MG/DL (0.70-1.30); GFR AFRICAN AMERICAN 36 ML/MIN (>=60); GFR NON AFRICAN AMERICAN 31 ML/MIN (>=60); GLOBULIN 4.3 G/DL (2.5-4.1); SGOT(AST) 26 U/L (5-40); SGPT(ALT) 25 U/L (5-65); SODIUM, SERUM 137 MMOL/L (135-148); TOTAL BILIRUBIN 0.6 MG/DL (0-1.2); TOTAL PROTEIN 7.6 G/DL (6.0-8.5)
[2017-05-28 06:45] LABS: BUN (BLOOD UREA NITROGEN) 29 MG/DL (6-23); GLUCOSE, SERUM 141 MG/DL (60-99)
[2017-05-28 07:15] LABS: HEMATOCRIT 45.1 % (40.0-51.0); HEMOGLOBIN 14.7 g/dL (13.6-17.8); MEAN CORPUS HGB CONC 32.6 g/dL (32.0-36.0); MEAN CORPUSCULAR HEMOGLOB 28.8 pg (26.0-34.0); MEAN CORPUSCULAR VOLUME 88.3 fL (80-100); MEAN PLATELET VOLUME 10.2 fL (9.2-13.0); NUCLEATED RED BLOOD CELLS 0.4 /100WBC (0-0); RBC DISTRIBUTION WIDTH 17.4 % (12.0-16.0); RED CELL COUNT 5.11 10/6/uL (4.7-6.1); WHITE BLOOD CELLS 24.4 10/3/uL (4.5-10.5)
[2017-05-28 07:19] LABS: MANUAL DIFF YES %; PLATELET COUNT 702 10/3/uL (150-400)
[2017-05-28 07:49] LABS: BAND NEUTROPHILS 16 %; LYMPHOCYTES 2 %; LYMPHOCYTES ABSOLUTE (CALC) 0.49 10/3/uL (0.67-4.30); MONOCYTES 4 %; MONOCYTES ABSOLUTE (CALC) 0.98 10/3/uL (0.21-1.20); NEUTROPHILS ABSOLUTE (CALC) 22.94 10/3/uL (2.02-8.40); SEGMENTED NEUTROPHIL (0) 78 %; TOTAL NUCLEATED CELLS 100
[2017-05-28 07:50] LABS: ANISOCYTOSIS 1+ (5-10/OIF) (0-5/OIF); GIANT PLATELET OCC
[2017-05-28 11:21] LABS: A/G 1.26 RATIO (0.9-2.10); ALB RELATIVE % 55.7 % (60.0-89.0); ALBUMIN (ELECTRO) 4.01 GM/DL (3.2-5.5); ALPHA 1 (ELECTRO) 0.21 GM/DL (0.1-0.4); ALPHA 1 RELAT % (NOT ORD) 2.9 % (1.0-4.0); ALPHA 2 (ELECTRO) 0.83 GM/DL (0.5-1.10); ALPHA 2 RELAT % 11.5 % (4.5-26.0); BETA GLOBULIN (SPE) 0.78 GM/DL (0.60-1.30); BETA RELATIVE % 10.8 % (9.0-22.0); GAMMA GLOBULIN (SPE) 1.38 G/DL (0.70-1.60); GAMMA RELAT % 19.1 % (6.0-22.0)
[2017-05-28 22:12] LABS: CK-MB 3.1 NG/ML; CPK 226 U/L (0-200)
[2017-05-29 05:34] LABS: BASOPHILS 0.4 %; BASOPHILS ABSOLUTE 0.09 10/3/uL (0.0-0.16); EOSINOPHILS 0 %; HEMOGLOBIN 12.9 g/dL (13.6-17.8); IMMATURE GRANULOCYTES 0.2 %; IMMATURE GRANULOCYTES ABSOLUTE 0.05 10/3/uL (0.0-0.11); LYMPHOCYTES 3.9 %; MEAN CORPUS HGB CONC 32.1 g/dL (32.0-36.0); MEAN CORPUSCULAR HEMOGLOB 28.5 pg (26.0-34.0); MEAN CORPUSCULAR VOLUME 88.7 fL (80-100); MEAN PLATELET VOLUME 9.8 fL (9.2-13.0); MONOCYTES 6.2 %; MONOCYTES ABSOLUTE 1.27 10/3/uL (0.21-1.20); NEUTROPHILS 89.3 %; NEUTROPHILS ABSOLUTE 18.34 10/3/uL (2.02-8.40); PLATELET COUNT 591 10/3/uL (150-400); RBC DISTRIBUTION WIDTH 17.4 % (12.0-16.0); RED CELL COUNT 4.53 10/6/uL (4.7-6.1); WHITE BLOOD CELLS 20.6 10/3/uL (4.5-10.5)
[2017-05-29 05:36] LABS: HEMATOCRIT 40.2 % (40.0-51.0); MANUAL DIFF NO %
[2017-05-29 05:49] LABS: BUN (BLOOD UREA NITROGEN) 24 MG/DL (6-23); CALCIUM, SERUM 8.5 MG/DL (8.5-10.4); CHLORIDE, SERUM 103 MMOL/L (96-112); CO2 (CARBON DIOXIDE) 28 MMOL/L (24-34); CREATININE 1.55 MG/DL (0.70-1.30); GFR AFRICAN AMERICAN 50 ML/MIN (>=60); GFR NON AFRICAN AMERICAN 43 ML/MIN (>=60); GLUCOSE, SERUM 114 MG/DL (60-99); POTASSIUM, SERUM 4.5 MMOL/L (3.5-5.3); SODIUM, SERUM 135 MMOL/L (135-148)
[2017-05-29 22:16] LABS: CPK 240 U/L (0-200)
[2017-05-30 05:27] LABS: BASOPHILS 1.1 %; BASOPHILS ABSOLUTE 0.14 10/3/uL (0.0-0.16); EOSINOPHILS 2.8 %; EOSINOPHILS ABSOLUTE 0.34 10/3/uL (0.0-0.53); HEMATOCRIT 40.7 % (40.0-51.0); HEMOGLOBIN 13.1 g/dL (13.6-17.8); IMMATURE GRANULOCYTES 0.2 %; IMMATURE GRANULOCYTES ABSOLUTE 0.03 10/3/uL (0.0-0.11); LYMPHOCYTES ABSOLUTE 1.22 10/3/uL (0.67-4.30); MEAN CORPUS HGB CONC 32.2 g/dL (32.0-36.0); MEAN CORPUSCULAR HEMOGLOB 28.9 pg (26.0-34.0); MEAN CORPUSCULAR VOLUME 89.6 fL (80-100); MEAN PLATELET VOLUME 10.1 fL (9.2-13.0); MONOCYTES 9.4 %; MONOCYTES ABSOLUTE 1.14 10/3/uL (0.21-1.20); NEUTROPHILS 76.5 %; NEUTROPHILS ABSOLUTE 9.32 10/3/uL (2.02-8.40); PLATELET COUNT 626 10/3/uL (150-400); RBC DISTRIBUTION WIDTH 16.9 % (12.0-16.0); RED CELL COUNT 4.54 10/6/uL (4.7-6.1)
[2017-05-30 05:31] LABS: CALCIUM, SERUM 8.3 MG/DL (8.5-10.4); CHLORIDE, SERUM 106 MMOL/L (96-112); CO2 (CARBON DIOXIDE) 24 MMOL/L (24-34); CREATININE 1.32 MG/DL (0.70-1.30); GFR AFRICAN AMERICAN 61 ML/MIN (>=60); GFR NON AFRICAN AMERICAN 52 ML/MIN (>=60); SODIUM, SERUM 137 MMOL/L (135-148); WHITE BLOOD CELLS 12.2 10/3/uL (4.5-10.5)
[2017-05-30 05:32] LABS: BUN (BLOOD UREA NITROGEN) 19 MG/DL (6-23); GLUCOSE, SERUM 88 MG/DL (60-99); MANUAL DIFF NO %
[2017-05-31 05:26] LABS: BASOPHILS 1.5 %; BASOPHILS ABSOLUTE 0.17 10/3/uL (0.0-0.16); EOSINOPHILS 4.1 %; EOSINOPHILS ABSOLUTE 0.45 10/3/uL (0.0-0.53); HEMATOCRIT 40.4 % (40.0-51.0); HEMOGLOBIN 13.1 g/dL (13.6-17.8); IMMATURE GRANULOCYTES 0.4 %; IMMATURE GRANULOCYTES ABSOLUTE 0.04 10/3/uL (0.0-0.11); LYMPHOCYTES 9.1 %; MEAN CORPUS HGB CONC 32.4 g/dL (32.0-36.0); MEAN CORPUSCULAR HEMOGLOB 28.6 pg (26.0-34.0); MEAN CORPUSCULAR VOLUME 88.2 fL (80-100); MEAN PLATELET VOLUME 10.2 fL (9.2-13.0); MONOCYTES 9.4 %; MONOCYTES ABSOLUTE 1.03 10/3/uL (0.21-1.20); NEUTROPHILS 75.5 %; NEUTROPHILS ABSOLUTE 8.32 10/3/uL (2.02-8.40); PLATELET COUNT 651 10/3/uL (150-400); RBC DISTRIBUTION WIDTH 16.6 % (12.0-16.0); RED CELL COUNT 4.58 10/6/uL (4.7-6.1)
[2017-05-31 05:27] LABS: MANUAL DIFF NO %
[2017-06-01 04:30] LABS: HEMATOCRIT 41.6 % (40.0-51.0); HEMOGLOBIN 13.5 g/dL (13.6-17.8); MEAN CORPUS HGB CONC 32.5 g/dL (32.0-36.0); MEAN CORPUSCULAR HEMOGLOB 28.2 pg (26.0-34.0); MEAN PLATELET VOLUME 10.1 fL (9.2-13.0); PLATELET COUNT 639 10/3/uL (150-400); RBC DISTRIBUTION WIDTH 16.6 % (12.0-16.0); RED CELL COUNT 4.78 10/6/uL (4.7-6.1); WHITE BLOOD CELLS 9.1 10/3/uL (4.5-10.5)
[2017-06-01 04:33] LABS: MANUAL DIFF YES %
[2017-06-01 04:46] LABS: CALCIUM, SERUM 8.2 MG/DL (8.5-10.4); CHLORIDE, SERUM 106 MMOL/L (96-112); CO2 (CARBON DIOXIDE) 27 MMOL/L (24-34); GFR AFRICAN AMERICAN 62 ML/MIN (>=60); GFR NON AFRICAN AMERICAN 53 ML/MIN (>=60); GLUCOSE, SERUM 83 MG/DL (60-99); POTASSIUM, SERUM 3.7 MMOL/L (3.5-5.3); SODIUM, SERUM 140 MMOL/L (135-148)
[2017-06-01 04:47] LABS: BUN (BLOOD UREA NITROGEN) 12 MG/DL (6-23)
[2017-06-01 05:00] LABS: BAND NEUTROPHILS 6 %; EOSINOPHILS 4 %; EOSINOPHILS ABSOLUTE (CALC) 0.36 10/3/uL (0.0-0.53); LYMPHOCYTES 11 %; MONOCYTES 8 %; MONOCYTES ABSOLUTE (CALC) 0.73 10/3/uL (0.21-1.20); NEUTROPHILS ABSOLUTE (CALC) 7.01 10/3/uL (2.02-8.40); PLATELET ESTIMATE INC (ADEQUATE); SEGMENTED NEUTROPHIL (0) 71 %; TOTAL NUCLEATED CELLS 100
[2017-06-01 05:01] LABS: RBC MORPHOLOGY NORM (NORMAL)
[2017-06-01] MEDS ORDERED: LOP25 PO (10:08)
[2017-06-01] MEDS ORDERED: DSS PO (10:11)
[2017-06-01] MEDS ORDERED: PROTONIX PO (10:12)
== END 2017-06-01 12:19 | disposition home or self-care (01) | DRG 330 ==
LOC: ENRESERVDT → ENRESERV → ENRESERVTM → DMU 11:33 → SDC/OF 13:30 → 5NO 13:30 → DMU 13:30 → 5NO 14:26
PROVIDERS: Hospitalist; Internal Medicine; Internal Medicine Gastroenterology; Nurse Practitioner Family; Specialist
PROC: 0DB48ZX Excision of Esophagogastric Junction, Via Natural or Artificial Opening Endoscopic, Diagnostic (ICD-10-PCS; 2017-05-25)
PROC: 0DBL8ZX Excision of Transverse Colon, Via Natural or Artificial Opening Endoscopic, Diagnostic (ICD-10-PCS; 2017-05-25)
PROC: 0DBP8ZZ Excision of Rectum, Via Natural or Artificial Opening Endoscopic (ICD-10-PCS; principal; 2017-05-25 14:37)
PROC: 0DBL0ZZ Excision of Transverse Colon, Open Approach (ICD-10-PCS; 2017-05-25 14:37)
PROC: 0DB68ZX Excision of Stomach, Via Natural or Artificial Opening Endoscopic, Diagnostic (ICD-10-PCS; 2017-05-25 14:37)
PROC: 0DB98ZX Excision of Duodenum, Via Natural or Artificial Opening Endoscopic, Diagnostic (ICD-10-PCS; 2017-05-25 14:37)
DX: C18.4 Malignant neoplasm of transverse colon (principal); K92.1 Melena; I48.1 Persistent atrial fibrillation; I48.2 Chronic atrial fibrillation; N18.3 Chronic kidney disease, stage 3 (moderate); M50.30 Other cervical disc degeneration, unspecified cervical region; N40.0 Benign prostatic hyperplasia without lower urinary tract symptoms; K62.1 Rectal polyp; K64.0 First degree hemorrhoids; D50.0 Iron deficiency anemia secondary to blood loss (chronic); Z86.010 Personal history of colon polyps
CPT/HCPCS: 36415; 74177; 80048; 80053; 80076; 82378; 82550; 82553; 82565; 82607; 82728; 83540; 83550; 83735; 84155; 84165; 84443; 84484; 85025; 85610; 85730; 86334; 86850; 86900; 86901; 88305; 88309; 88341; 88342; 93005; A9270-GY; J0690; J2250; J2370; J2405; J2710; J2795; J3010; P9045; Q9967